=== PATIENT | male | born 1935 | race Caucasian/White ===

== ENCOUNTER 2018-06-24 14:52 | Inpatient (IN) | payer MEDICARE ==
[~2018-06-24] VITALS: Ht 172.7 cm; Wt 64.4 kg
[~2018-06-24 14:52] MED LIST: ACET325 PO; AMOX875 PO; ASPI325; ASPI325EC PO; Acidophilus La100 GM PO; Augmentin 875-1 EACH PO; Belladonna-Opi1 EACH RC; CIPR500 PO; CLIN300; CLIN300 PO; DOCU100 PO; FISH1000; FISH1000 PO; HYDACE5 PO; HYDR1TAB94 PO; IBUP400 PO; IBUP600 PO; KETO5OP BOTHEYES; METCAR750 PO; MIRT15 PO; MOXI400 PO; MULVITMIND PO; NAPR550 PO; Nasal & Sinus D30 MG PO; OMEP20ER; OMEP20ER PO; OXYB5 PO; Prilosec Otc20 MG PO; Pyridium100 MG PO; Vibramycin100 MG PO; Zylet Eye Drops5 ML BOTHEYES
[2018-06-24] MEDS ORDERED: GABA300 PO (15:05)
[2018-06-24] MEDS ORDERED: Omeprazole20 M1 PO (15:05)
[2018-06-24] MEDS ORDERED: OXYC5 PO (15:05)
[2018-06-24] MEDS ORDERED: Mupirocin22 GM (15:06)
[2018-06-24] MEDS ORDERED: METO10 (15:06)
[2018-06-24] MEDS ORDERED: ONDA4 PO (15:06)
[2018-06-24] MEDS ORDERED: K-TAB ER20 MEQ PO (15:06)
[2018-06-24] MEDS ORDERED: AZIT500 (15:06)
[2018-06-24] MEDS ORDERED: SUCR1 (15:06)
[2018-06-24] MEDS ORDERED: Lactulose10 GM/151 (15:06)
[2018-06-24 15:25] LABS: Calcium, Ionized (POC) 1.14 mmol/L (1.10-1.46); Chloride (POC) 99 mmol/L (98-108); Creatinine (POC) 0.7 mg/dL (0.8-1.3); Glucose (ISTAT POC) 114 mg/dL (70-99); Hemoglobin (POC) 9.9 g/dL (13.5-17.5); Potassium (POC) 3.7 mmol/L (3.5-5.5); Sodium (POC) 138 mmol/L (135-148); Total CO2 (POC) 27 mmol/L (21-32)
[2018-06-24 15:50] LABS: Hematocrit 30.3 % (37.0-53.0); Hemoglobin 8.9 g/dL (13.5-17.5); Mean Corpuscular HGB 21.9 pg (26.0-34.0); Mean Corpuscular HGB Conc 29.4 g/dL (31.5-36.5); Mean Corpuscular Volume 75 fL (80-100); Platelet Count 172 K/mm3 (150-400); RDW Standard Deviation 48.6 fL (35.1-46.3); Red Blood Cell Count 4.06 M/mm3 (4.30-5.90); White Blood Cell Count 2.21 K/mm3 (4.00-11.30)
[2018-06-24 16:42] LABS: BASOPHILS ABSOLUTE MAN 0.08 K/mm3 (0.00-0.23); BASOPHILS PERCENT MAN 4 % (0-2); EOSINOPHILS PERCENT MAN 0 % (0-6); LYMPHOCYTES PERCENT MAN 50 % (21-46); MONOCYTES PERCENT MAN 14 % (4-13); SEG NEUTROPHILS PERCENT MAN 32 % (41-73); TOTAL CELLS COUNTED 50
[2018-06-25 04:53] LABS: BASOPHILS ABSOLUTE AUTO 0.06 K/mm3 (0.00-0.23); BASOPHILS PERCENT AUTO 3 % (0-2); EOSINOPHILS ABSOLUTE AUTO 0.05 K/mm3 (0.00-0.68); EOSINOPHILS PERCENT AUTO 2 % (0-6); Hematocrit 25.9 % (37.0-53.0); Hemoglobin 7.7 g/dL (13.5-17.5); IMMATURE GRAN ABSOLUTE AUTO 0.01 K/mm3 (0.00-0.10); IMMATURE GRAN PERCENT AUTO 0 % (0-1); LYMPHOCYTES ABSOLUTE AUTO 1.06 K/mm3 (0.84-5.20); LYMPHOCYTES PERCENT AUTO 47 % (21-46); MONOCYTES ABSOLUTE AUTO 0.76 K/mm3 (0.16-1.47); MONOCYTES PERCENT AUTO 34 % (4-13); Mean Corpuscular HGB 21.9 pg (26.0-34.0); Mean Corpuscular HGB Conc 29.7 g/dL (31.5-36.5); Mean Corpuscular Volume 74 fL (80-100); NEUTROPHILS PERCENT AUTO 14 % (41-73); Platelet Count 143 K/mm3 (150-400); RDW Coefficient Variation 18.1 % (11.7-14.2); Red Blood Cell Count 3.51 M/mm3 (4.30-5.90); White Blood Cell Count 2.24 K/mm3 (4.00-11.30)
[2018-06-25 05:05] LABS: Anion Gap 6 mmol/L (6-16); Blood Urea Nitrogen 8 mg/dL (8-24); Bun/Creatinine Ratio 11.1 (12.0-20.0); CO2, Blood 28 mmol/L (21-32); Calcium, Blood 8.4 mg/dL (8.5-10.1); Chloride, Blood 104 mmol/L (98-108); Creatinine, Blood 0.72 mg/dL (0.60-1.20); Glomerular Filtration Rate >60 (60-); Glucose, Blood 85 mg/dL (70-99); Potassium, Blood 3.7 mmol/L (3.5-5.5); Sodium, Blood 138 mmol/L (136-145)
[2018-06-26 04:33] LABS: BASOPHILS ABSOLUTE AUTO 0.07 K/mm3 (0.00-0.23); BASOPHILS PERCENT AUTO 3 % (0-2); EOSINOPHILS ABSOLUTE AUTO 0.07 K/mm3 (0.00-0.68); EOSINOPHILS PERCENT AUTO 3 % (0-6); Hematocrit 31.7 % (37.0-53.0); Hemoglobin 9.5 g/dL (13.5-17.5); IMMATURE GRAN ABSOLUTE AUTO 0.02 K/mm3 (0.00-0.10); IMMATURE GRAN PERCENT AUTO 1 % (0-1); LYMPHOCYTES ABSOLUTE AUTO 1.36 K/mm3 (0.84-5.20); LYMPHOCYTES PERCENT AUTO 56 % (21-46); MONOCYTES ABSOLUTE AUTO 0.66 K/mm3 (0.16-1.47); MONOCYTES PERCENT AUTO 27 % (4-13); Mean Corpuscular HGB 22.7 pg (26.0-34.0); Mean Corpuscular Volume 76 fL (80-100); NEUTROPHILS ABSOLUTE AUTO 0.27 K/mm3 (1.96-9.15); NEUTROPHILS PERCENT AUTO 11 % (41-73); Platelet Count 162 K/mm3 (150-400); RDW Coefficient Variation 18.6 % (11.7-14.2); RDW Standard Deviation 50.4 fL (35.1-46.3); Red Blood Cell Count 4.19 M/mm3 (4.30-5.90); White Blood Cell Count 2.45 K/mm3 (4.00-11.30)
[2018-06-26 04:46] LABS: Anion Gap 5 mmol/L (6-16); Blood Urea Nitrogen 7 mg/dL (8-24); Bun/Creatinine Ratio 9.7 (12.0-20.0); CO2, Blood 30 mmol/L (21-32); Calcium, Blood 8.8 mg/dL (8.5-10.1); Chloride, Blood 105 mmol/L (98-108); Creatinine, Blood 0.73 mg/dL (0.60-1.20); Glomerular Filtration Rate >60 (60-); Glucose, Blood 90 mg/dL (70-99); Potassium, Blood 3.9 mmol/L (3.5-5.5); Sodium, Blood 140 mmol/L (136-145)
[2018-06-27 05:13] LABS: Bilirubin, Urine Neg (Neg); Blood, Urine Neg (Neg); Glucose Qualitative, Urine Neg (Neg); Ketones, Urine Neg (Neg); Leukocyte Esterase, Urine Neg (Neg); Nitrite, Urine Neg (Neg); Protein, Urine Neg (Neg); Urobilinogen, Urine NORM (Normal)
[2018-06-27 05:18] LABS: Appearance, Urine Clear (Clear); Color, Urine Pale Yellow (P-Yellow)
[2018-06-27 06:29] LABS: BASOPHILS ABSOLUTE AUTO 0.04 K/mm3 (0.00-0.23); BASOPHILS PERCENT AUTO 2 % (0-2); EOSINOPHILS ABSOLUTE AUTO 0.08 K/mm3 (0.00-0.68); EOSINOPHILS PERCENT AUTO 4 % (0-6); Hematocrit 31.6 % (37.0-53.0); Hemoglobin 9.5 g/dL (13.5-17.5); IMMATURE GRAN PERCENT AUTO 0 % (0-1); LYMPHOCYTES ABSOLUTE AUTO 1.15 K/mm3 (0.84-5.20); LYMPHOCYTES PERCENT AUTO 56 % (21-46); MONOCYTES ABSOLUTE AUTO 0.47 K/mm3 (0.16-1.47); MONOCYTES PERCENT AUTO 23 % (4-13); Mean Corpuscular HGB 22.5 pg (26.0-34.0); Mean Corpuscular HGB Conc 30.1 g/dL (31.5-36.5); Mean Corpuscular Volume 75 fL (80-100); NEUTROPHILS ABSOLUTE AUTO 0.31 K/mm3 (1.96-9.15); NEUTROPHILS PERCENT AUTO 15 % (41-73); Platelet Count 180 K/mm3 (150-400); RDW Coefficient Variation 18.5 % (11.7-14.2); Red Blood Cell Count 4.23 M/mm3 (4.30-5.90); White Blood Cell Count 2.05 K/mm3 (4.00-11.30)
[2018-06-27 06:30] LABS: Mean Platelet Volume 12.3 fL (9.1-12.4)
[2018-06-27 06:39] LABS: Anion Gap 7 mmol/L (6-16); Blood Urea Nitrogen 5 mg/dL (8-24); Bun/Creatinine Ratio 7.6 (12.0-20.0); CO2, Blood 27 mmol/L (21-32); Calcium, Blood 8.7 mg/dL (8.5-10.1); Chloride, Blood 107 mmol/L (98-108); Creatinine, Blood 0.66 mg/dL (0.60-1.20); Glomerular Filtration Rate >60 (60-); Glucose, Blood 103 mg/dL (70-99); Potassium, Blood 3.4 mmol/L (3.5-5.5); Sodium, Blood 141 mmol/L (136-145)
[2018-06-28 06:09] LABS: BASOPHILS ABSOLUTE AUTO 0.07 K/mm3 (0.00-0.23); BASOPHILS PERCENT AUTO 3 % (0-2); EOSINOPHILS ABSOLUTE AUTO 0.11 K/mm3 (0.00-0.68); EOSINOPHILS PERCENT AUTO 4 % (0-6); Hemoglobin 9.4 g/dL (13.5-17.5); IMMATURE GRAN ABSOLUTE AUTO 0.01 K/mm3 (0.00-0.10); IMMATURE GRAN PERCENT AUTO 0 % (0-1); LYMPHOCYTES ABSOLUTE AUTO 1.54 K/mm3 (0.84-5.20); LYMPHOCYTES PERCENT AUTO 60 % (21-46); MONOCYTES ABSOLUTE AUTO 0.59 K/mm3 (0.16-1.47); MONOCYTES PERCENT AUTO 23 % (4-13); Mean Corpuscular HGB 22.8 pg (26.0-34.0); Mean Corpuscular HGB Conc 30.3 g/dL (31.5-36.5); Mean Corpuscular Volume 75 fL (80-100); NEUTROPHILS ABSOLUTE AUTO 0.23 K/mm3 (1.96-9.15); NEUTROPHILS PERCENT AUTO 9 % (41-73); Platelet Count 183 K/mm3 (150-400); RDW Coefficient Variation 18.6 % (11.7-14.2); RDW Standard Deviation 50.4 fL (35.1-46.3); Red Blood Cell Count 4.13 M/mm3 (4.30-5.90); White Blood Cell Count 2.55 K/mm3 (4.00-11.30)
[2018-06-28 06:18] LABS: Mean Platelet Volume 11.7 fL (9.1-12.4)
[2018-06-28 06:28] LABS: Albumin, Blood 2.3 g/dL (3.4-5.0); Anion Gap 8 mmol/L (6-16); Blood Urea Nitrogen 6 mg/dL (8-24); Bun/Creatinine Ratio 8.5 (12.0-20.0); CO2, Blood 26 mmol/L (21-32); Calcium, Blood 8.8 mg/dL (8.5-10.1); Chloride, Blood 105 mmol/L (98-108); Creatinine, Blood 0.71 mg/dL (0.60-1.20); Glomerular Filtration Rate >60 (60-); Glucose, Blood 85 mg/dL (70-99); Phosphorus, Blood 3.1 mg/dL (2.5-4.9); Potassium, Blood 3.8 mmol/L (3.5-5.5); Sodium, Blood 139 mmol/L (136-145)
[2018-06-28] MEDS ORDERED: CIPR500 PO (11:51)
[2018-06-28] MEDS ORDERED: METR500 PO (11:51)
[2018-06-28] MEDS ORDERED: SACC250C PO (11:51)
== END 2018-06-28 13:13 | disposition home or self-care (01) | DRG 391 ==
LOC: ER 14:52 → MEDS 14:53 → ENPENDDIS 06-28 10:56 → MEDS 06-28 13:13
PROVIDERS: Emergency Medicine; Family Medicine; Internal Medicine
PROC: 30233N1 Transfusion of Nonautologous Red Blood Cells into Peripheral Vein, Percutaneous Approach (ICD-10-PCS; principal; 2018-06-25)
DX: A09 Infectious gastroenteritis and colitis, unspecified (principal); D61.810 Antineoplastic chemotherapy induced pancytopenia; C93.10 Chronic myelomonocytic leukemia not having achieved remission; Z87.891 Personal history of nicotine dependence; I77.6 Arteritis, unspecified; Z92.21 Personal history of antineoplastic chemotherapy; G62.0 Drug-induced polyneuropathy; Z66 Do not resuscitate; R16.1 Splenomegaly, not elsewhere classified; D64.81 Anemia due to antineoplastic chemotherapy; R63.4 Abnormal weight loss; R04.0 Epistaxis; T45.1X5A Adverse effect of antineoplastic and immunosuppressive drugs, initial encounter; Y92.9 Unspecified place or not applicable; K21.9 Gastro-esophageal reflux disease without esophagitis; R53.1 Weakness; E87.6 Hypokalemia
CPT/HCPCS: 36415; 74177; 80047; 80048; 80069; 81000; 81003; 85014; 85025; 86850; 86900; 86901; 86923; 87040; 96361; 96374; 96375; 96376; 97116; 97161; 99285-25; C9113; G8978; G8979; G8980; J0295; J2405; J3010; J7030; J7120; P9016; Q9967

== ENCOUNTER 2018-07-13 08:48 | Day surgery (SDC) | payer MEDICARE ==
[~2018-07-13] VITALS: Ht 167.6 cm; Wt 59.4 kg
[~2018-07-13 08:48] MED LIST changes: +AZIT500; +Belladonna-Opi1 EACH PR; +DIAZ5 PO; +GABA300 PO; +HYDPAM50 PO; +K-TAB ER20 MEQ PO; +Lactulose10 GM/151; +METO10; +METO10 PO; +METR500 PO; +MIRT30 PO; +Mupirocin22 GM; +OMEPRAZOLE MAGN20 MG PO; +ONDA4 PO; +OXYC5 PO; +Omeprazole20 M1 PO; +PSEU120ER PO; +Robaxin750 MG PO; +SACC250C PO; +SUCR1; +ZADITOR5 ML; +Zofran8 MG PO
[2018-07-13] MEDS ORDERED: POTA8 (09:26)
[2018-07-13] MEDS ORDERED: OXYC1TAB11 (09:26)
== END 2018-07-13 10:28 | disposition home or self-care (01) ==
LOC: ORSCSDS 08:48
PROVIDERS: Internal Medicine Gastroenterology
PROC: 0DB68ZX Excision of Stomach, Via Natural or Artificial Opening Endoscopic, Diagnostic (ICD-10-PCS; principal; 2018-07-13 10:00)
PROC: 0D758ZZ Dilation of Esophagus, Via Natural or Artificial Opening Endoscopic (ICD-10-PCS; principal; 2018-07-13 10:00)
DX: K22.70 Barrett's esophagus without dysplasia (principal); K29.70 Gastritis, unspecified, without bleeding; K29.80 Duodenitis without bleeding; R13.11 Dysphagia, oral phase; K21.9 Gastro-esophageal reflux disease without esophagitis; D46.9 Myelodysplastic syndrome, unspecified; Z87.891 Personal history of nicotine dependence; Z79.899 Other long term (current) drug therapy
CPT/HCPCS: 88305; 88342; J7120

== ENCOUNTER 2018-11-11 15:55 | Emergency (ER) | payer MEDICARE ==
[~2018-11-11] VITALS: Ht 167.6 cm; Wt 61.2 kg
[~2018-11-11 15:55] MED LIST changes: +OXYC1TAB11; +POTA8
[2018-11-11 16:54] LABS: BASOPHILS ABSOLUTE AUTO 0.01 K/mm3 (0.00-0.23); BASOPHILS PERCENT AUTO 0 % (0-2); EOSINOPHILS ABSOLUTE AUTO 0.04 K/mm3 (0.00-0.68); EOSINOPHILS PERCENT AUTO 1 % (0-6); Hemoglobin 8.5 g/dL (13.5-17.5); IMMATURE GRAN ABSOLUTE AUTO 0.02 K/mm3 (0.00-0.10); IMMATURE GRAN PERCENT AUTO 1 % (0-1); LYMPHOCYTES ABSOLUTE AUTO 1.85 K/mm3 (0.84-5.20); LYMPHOCYTES PERCENT AUTO 55 % (21-46); MONOCYTES ABSOLUTE AUTO 1.25 K/mm3 (0.16-1.47); MONOCYTES PERCENT AUTO 37 % (4-13); Mean Corpuscular HGB 22.1 pg (26.0-34.0); Mean Corpuscular HGB Conc 28.3 g/dL (31.5-36.5); Mean Corpuscular Volume 78 fL (80-100); NEUTROPHILS PERCENT AUTO 6 % (41-73); Platelet Count 142 K/mm3 (150-400); RDW Coefficient Variation 17.8 % (11.7-14.2); RDW Standard Deviation 50.6 fL (35.1-46.3); Red Blood Cell Count 3.85 M/mm3 (4.30-5.90); White Blood Cell Count 3.37 K/mm3 (4.00-11.30)
[2018-11-11 16:56] LABS: Mean Platelet Volume 12.1 fL (9.1-12.4)
[2018-11-11 17:10] LABS: Alanine Aminotransfer (ALT/SGP 13 U/L (12-78); Albumin, Blood 2.7 g/dL (3.4-5.0); Albumin/Globulin Ratio 0.5 (0.8-1.8); Alk Phos 195 U/L (50-136); Anion Gap 8 mmol/L (6-16); Aspartate Aminotrans (AST/SGOT 13 U/L (12-37); Bilirubin, Total 0.4 mg/dL (0.1-1.0); Blood Urea Nitrogen 13 mg/dL (8-24); Bun/Creatinine Ratio 15.3 (12.0-20.0); CO2, Blood 25 mmol/L (21-32); Calcium, Blood 8.3 mg/dL (8.5-10.1); Chloride, Blood 104 mmol/L (98-108); Creatinine, Blood 0.85 mg/dL (0.60-1.20); Globulin, Blood 5.5 g/dL (2.2-4.0); Glomerular Filtration Rate >60 (60-); Glucose, Blood 126 mg/dL (70-99); Potassium, Blood 3.5 mmol/L (3.5-5.5); Sodium, Blood 137 mmol/L (136-145); Total Protein, Blood 8.2 g/dL (6.4-8.2); Troponin I <0.015 ng/mL (0.000-0.040)
== END 2018-11-11 20:05 | disposition home or self-care (01) ==
LOC: ER 15:55
PROVIDERS: Physician Assistant
DX: R07.81 Pleurodynia (principal); C92.10 Chronic myeloid leukemia, BCR/ABL-positive, not having achieved remission; K21.9 Gastro-esophageal reflux disease without esophagitis; Z87.891 Personal history of nicotine dependence; Z85.51 Personal history of malignant neoplasm of bladder; Z79.899 Other long term (current) drug therapy; Z79.891 Long term (current) use of opiate analgesic
CPT/HCPCS: 36415; 71260; 80053; 84484; 85025; 93005; 93010; 99284-25; Q9967

== ENCOUNTER 2020-01-25 10:23 | Inpatient (IN) | payer OTHER, MEDICARE ==
[~2020-01-25] VITALS: Ht 170.2 cm; Wt 76.0 kg
[2020-01-25 10:47] LABS: BASOPHILS ABSOLUTE AUTO 0.02 K/mm3 (0.00-0.23); BASOPHILS PERCENT AUTO 0 % (0-2); EOSINOPHILS ABSOLUTE AUTO 0.02 K/mm3 (0.00-0.68); EOSINOPHILS PERCENT AUTO 0 % (0-6); Hematocrit 44.9 % (37.0-53.0); IMMATURE GRAN ABSOLUTE AUTO 0.05 K/mm3 (0.00-0.10); IMMATURE GRAN PERCENT AUTO 0 % (0-1); LYMPHOCYTES PERCENT AUTO 31 % (21-46); MONOCYTES ABSOLUTE AUTO 2.07 K/mm3 (0.16-1.47); MONOCYTES PERCENT AUTO 15 % (4-13); Mean Corpuscular HGB 27.5 pg (26.0-34.0); Mean Corpuscular HGB Conc 31.2 g/dL (31.5-36.5); Mean Corpuscular Volume 88 fL (80-100); NEUTROPHILS ABSOLUTE AUTO 7.58 K/mm3 (1.96-9.15); NEUTROPHILS PERCENT AUTO 54 % (41-73); RDW Coefficient Variation 15.3 % (11.7-14.2); RDW Standard Deviation 49.7 fL (35.1-46.3); White Blood Cell Count 14.04 K/mm3 (4.00-11.30)
[2020-01-25] MEDS ORDERED: OXYC10TA19 PO (10:55)
[2020-01-25] MEDS ORDERED: Hydroxychloroq200 MG PO (10:58)
[2020-01-25 10:59] LABS: Troponin I <0.015 ng/mL (0.000-0.040)
[2020-01-25 11:00] LABS: Alanine Aminotransfer (ALT/SGP 38 U/L (12-78); Albumin, Blood 3.7 g/dL (3.4-5.0); Alk Phos 79 U/L (50-136); Anion Gap 6 mmol/L (6-16); Aspartate Aminotrans (AST/SGOT 25 U/L (12-37); Bilirubin, Total 0.4 mg/dL (0.1-1.0); Blood Urea Nitrogen 13 mg/dL (8-24); Bun/Creatinine Ratio 20.1 (12.0-20.0); CO2, Blood 27 mmol/L (21-32); Calcium, Blood 8.8 mg/dL (8.5-10.1); Chloride, Blood 108 mmol/L (98-108); Creatinine, Blood 0.65 mg/dL (0.60-1.20); Globulin, Blood 3.7 g/dL (2.2-4.0); Glomerular Filtration Rate >60 (60-); Glucose, Blood 100 mg/dL (70-99); Potassium, Blood 3.2 mmol/L (3.5-5.5); Sodium, Blood 141 mmol/L (136-145); Total Protein, Blood 7.4 g/dL (6.4-8.2)
[2020-01-25 11:02] LABS: Platelet Count 38 K/mm3 (150-400)
[2020-01-25] MEDS ORDERED: Dexamethasone4 MG PO (12:44)
[2020-01-25] MEDS ORDERED: Prilosec Otc20 MG PO (12:45)
[2020-01-25 13:21] LABS: PCO2 Arterial 33.7 mmHg (35-45); PO2 Arterial 80.8 mmHg (80-100); pH Blood Arterial 7.44 (7.35-7.45)
[2020-01-25 14:05] LABS: Source, Urine Voided
[2020-01-25 14:15] LABS: Bilirubin, Urine Neg (Neg); Blood, Urine Neg (Neg); Glucose Qualitative, Urine Neg (Neg); Ketones, Urine Neg (Neg); Leukocyte Esterase, Urine Neg (Neg); Nitrite, Urine Neg (Neg); Protein, Urine 1+ (Neg); Urobilinogen, Urine NORM (Normal)
[2020-01-25 14:22] LABS: Appearance, Urine Clear (Clear); Color, Urine Yellow (P-Yellow)
[2020-01-25 15:35] LABS: Adenovirus Not Detected (NOT DETECT); Coronavirus 229E Not Detected (NOT DETECT); Coronavirus HKU1 Not Detected (NOT DETECT)
[2020-01-25 15:36] LABS: Bordetella pertussis Not Detected (NOT DETECT); Chlamydophila pneumoniae Not Detected (NOT DETECT); Coronavirus NL63 Not Detected (NOT DETECT); Coronavirus OC43 Not Detected (NOT DETECT); Human Metapneumovirus Detected (NOT DETECT); Human Rhinovirus/Enterovirus Not Detected (NOT DETECT); Influenza A/2009-H1 Not Detected (NOT DETECT); Influenza A/H1 Not Detected (NOT DETECT); Influenza A/H3 Not Detected (NOT DETECT); Influenza B Not Detected (NOT DETECT); Mycoplasma pneumoniae Not Detected (NOT DETECT); Parainfluenza Virus 1 Not Detected (NOT DETECT); Parainfluenza Virus 2 Not Detected (NOT DETECT); Parainfluenza Virus 3 Not Detected (NOT DETECT); Parainfluenza Virus 4 Not Detected (NOT DETECT); Respiratory Syncytial Virus Not Detected (NOT DETECT)
[2020-01-25] MEDS ORDERED: HYDSUL200 PO (16:29)
[2020-01-26 04:30] LABS: BASOPHILS PERCENT AUTO 0 % (0-2); EOSINOPHILS PERCENT AUTO 0 % (0-6); Hematocrit 37.8 % (37.0-53.0); Hemoglobin 11.8 g/dL (13.5-17.5); IMMATURE GRAN ABSOLUTE AUTO 0.02 K/mm3 (0.00-0.10); IMMATURE GRAN PERCENT AUTO 0 % (0-1); LYMPHOCYTES ABSOLUTE AUTO 1.67 K/mm3 (0.84-5.20); LYMPHOCYTES PERCENT AUTO 25 % (21-46); MONOCYTES ABSOLUTE AUTO 0.95 K/mm3 (0.16-1.47); MONOCYTES PERCENT AUTO 14 % (4-13); Mean Corpuscular HGB 27.8 pg (26.0-34.0); Mean Corpuscular HGB Conc 31.2 g/dL (31.5-36.5); Mean Corpuscular Volume 89 fL (80-100); NEUTROPHILS ABSOLUTE AUTO 4.05 K/mm3 (1.96-9.15); NEUTROPHILS PERCENT AUTO 61 % (41-73); RDW Coefficient Variation 15.4 % (11.7-14.2); RDW Standard Deviation 50.4 fL (35.1-46.3); Red Blood Cell Count 4.24 M/mm3 (4.30-5.90); White Blood Cell Count 6.69 K/mm3 (4.00-11.30)
[2020-01-26 04:35] LABS: Platelet Count 34 K/mm3 (150-400)
[2020-01-26 04:45] LABS: Alanine Aminotransfer (ALT/SGP 28 U/L (12-78); Albumin, Blood 2.9 g/dL (3.4-5.0); Albumin/Globulin Ratio 0.9 (0.8-1.8); Alk Phos 61 U/L (50-136); Anion Gap 5 mmol/L (6-16); Aspartate Aminotrans (AST/SGOT 12 U/L (12-37); Bilirubin, Total 0.3 mg/dL (0.1-1.0); Blood Urea Nitrogen 14 mg/dL (8-24); Bun/Creatinine Ratio 19.1 (12.0-20.0); CO2, Blood 26 mmol/L (21-32); Calcium, Blood 8.1 mg/dL (8.5-10.1); Chloride, Blood 112 mmol/L (98-108); Creatinine, Blood 0.73 mg/dL (0.60-1.20); Globulin, Blood 3.1 g/dL (2.2-4.0); Glomerular Filtration Rate >60 (60-); Glucose, Blood 102 mg/dL (70-99); Potassium, Blood 4.3 mmol/L (3.5-5.5); Sodium, Blood 143 mmol/L (136-145)
[2020-01-29 04:40] LABS: BASOPHILS ABSOLUTE AUTO 0.01 K/mm3 (0.00-0.23); BASOPHILS PERCENT AUTO 0 % (0-2); EOSINOPHILS ABSOLUTE AUTO 0.01 K/mm3 (0.00-0.68); EOSINOPHILS PERCENT AUTO 0 % (0-6); Hematocrit 36.7 % (37.0-53.0); Hemoglobin 11.3 g/dL (13.5-17.5); IMMATURE GRAN ABSOLUTE AUTO 0.04 K/mm3 (0.00-0.10); IMMATURE GRAN PERCENT AUTO 1 % (0-1); LYMPHOCYTES ABSOLUTE AUTO 1.33 K/mm3 (0.84-5.20); LYMPHOCYTES PERCENT AUTO 23 % (21-46); MONOCYTES ABSOLUTE AUTO 0.75 K/mm3 (0.16-1.47); MONOCYTES PERCENT AUTO 13 % (4-13); Mean Corpuscular HGB 27.3 pg (26.0-34.0); Mean Corpuscular HGB Conc 30.8 g/dL (31.5-36.5); Mean Corpuscular Volume 89 fL (80-100); NEUTROPHILS ABSOLUTE AUTO 3.73 K/mm3 (1.96-9.15); NEUTROPHILS PERCENT AUTO 63 % (41-73); Platelet Count 55 K/mm3 (150-400); RDW Coefficient Variation 15.2 % (11.7-14.2); RDW Standard Deviation 49.7 fL (35.1-46.3); Red Blood Cell Count 4.14 M/mm3 (4.30-5.90); White Blood Cell Count 5.87 K/mm3 (4.00-11.30)
[2020-01-29 04:41] LABS: Mean Platelet Volume 13.4 fL (9.1-12.4)
[2020-01-30 05:24] LABS: BASOPHILS ABSOLUTE AUTO 0.01 K/mm3 (0.00-0.23); BASOPHILS PERCENT AUTO 0 % (0-2); EOSINOPHILS ABSOLUTE AUTO 0.01 K/mm3 (0.00-0.68); EOSINOPHILS PERCENT AUTO 0 % (0-6); Hematocrit 37.8 % (37.0-53.0); Hemoglobin 11.7 g/dL (13.5-17.5); IMMATURE GRAN ABSOLUTE AUTO 0.04 K/mm3 (0.00-0.10); IMMATURE GRAN PERCENT AUTO 1 % (0-1); LYMPHOCYTES ABSOLUTE AUTO 1.25 K/mm3 (0.84-5.20); LYMPHOCYTES PERCENT AUTO 21 % (21-46); MONOCYTES ABSOLUTE AUTO 0.77 K/mm3 (0.16-1.47); MONOCYTES PERCENT AUTO 13 % (4-13); Mean Corpuscular HGB 27.1 pg (26.0-34.0); Mean Corpuscular Volume 88 fL (80-100); Mean Platelet Volume 12.8 fL (9.1-12.4); NEUTROPHILS ABSOLUTE AUTO 3.97 K/mm3 (1.96-9.15); NEUTROPHILS PERCENT AUTO 66 % (41-73); Platelet Count 65 K/mm3 (150-400); RDW Coefficient Variation 15.1 % (11.7-14.2); RDW Standard Deviation 48.8 fL (35.1-46.3); Red Blood Cell Count 4.32 M/mm3 (4.30-5.90); White Blood Cell Count 6.05 K/mm3 (4.00-11.30)
[2020-01-30] MEDS ORDERED: ACET325 PO (13:02)
[2020-01-30] MEDS ORDERED: ALBU90OI INH (13:04)
[2020-01-30] MEDS ORDERED: BENZ100A PO (13:05)
[2020-01-30] MEDS ORDERED: CODEINE-GUAIFE120 ML PO (13:05)
[2020-01-30] MEDS ORDERED: DOCUSATE SODIU1 EACH PO (13:06)
[2020-01-30] MEDS ORDERED: PRED20 (13:07)
== END 2020-01-30 14:15 | disposition home or self-care (01) | DRG 871 ==
LOC: ER 10:23 → PCU 14:19 → MEDS 01-26 16:40
PROVIDERS: Emergency Medicine; Internal Medicine; Nurse Practitioner Acute Care; ADMIT Internal Medicine
DX: A41.9 Sepsis, unspecified organism (principal); J96.01 Acute respiratory failure with hypoxia; J12.3 Human metapneumovirus pneumonia; C93.10 Chronic myelomonocytic leukemia not having achieved remission; R65.20 Severe sepsis without septic shock; D69.6 Thrombocytopenia, unspecified; E87.6 Hypokalemia; K21.9 Gastro-esophageal reflux disease without esophagitis; Z85.51 Personal history of malignant neoplasm of bladder; Z87.891 Personal history of nicotine dependence; E78.5 Hyperlipidemia, unspecified; Z66 Do not resuscitate
CPT/HCPCS: 0099U; 36415; 36600; 71045; 71260; 76705; 80053; 82803; 83605; 83735; 83880; 84145; 84484; 85025; 87040; 87070; 87205; 87449; 93005; 93010; 94640; 94760; 96365; 96366; 96367; 99285-25; J0456; J0696; J1956; J7030; J7050; J7512; Q9967; U0002

== ENCOUNTER 2020-10-09 10:07 | Emergency (ER) | payer MEDICARE ==
[~2020-10-09] VITALS: Ht 172.7 cm; Wt 74.8 kg
[~2020-10-09 10:07] MED LIST changes: +ALBU90OI INH; +BENZ100A PO; +CODEINE-GUAIFE120 ML PO; +DOCUSATE SODIU1 EACH PO; +Dexamethasone4 MG PO; +HYDSUL200 PO; +Hydroxychloroq200 MG PO; +OXYC10TA19 PO; +PRED20
== END 2020-10-09 11:42 | disposition home or self-care (01) ==
LOC: ER 10:07
DX: R13.10 Dysphagia, unspecified (principal); R09.89 Other specified symptoms and signs involving the circulatory and respiratory systems; K21.9 Gastro-esophageal reflux disease without esophagitis; Z88.8 Allergy status to other drugs, medicaments and biological substances; Z79.899 Other long term (current) drug therapy; Z87.891 Personal history of nicotine dependence
CPT/HCPCS: 36415; 96374; 99284-25; J1610

== ENCOUNTER 2020-12-10 10:06 | Day surgery (SDC) | payer OTHER ==
[~2020-12-10] VITALS: Ht 170.2 cm; Wt 81.3 kg
--- NOTE | 2020-12-10 11:51 | NUR ---
12/10/20 1151 Elba Staples PT. DENIES ANY PAIN DIFFERENT FROM PREOP. PT. HAS CHRONIC BACK PAIN.
== END 2020-12-10 11:20 | disposition home or self-care (01) ==
LOC: ORSCSDS 10:06
PROVIDERS: Internal Medicine Gastroenterology
PROC: 0DB68ZX Excision of Stomach, Via Natural or Artificial Opening Endoscopic, Diagnostic (ICD-10-PCS; principal; 2020-12-10 11:15)
PROC: 0D758ZZ Dilation of Esophagus, Via Natural or Artificial Opening Endoscopic (ICD-10-PCS; principal; 2020-12-10 11:15)
DX: R13.10 Dysphagia, unspecified (principal); R93.3 Abnormal findings on diagnostic imaging of other parts of digestive tract; I85.00 Esophageal varices without bleeding; K76.6 Portal hypertension; K22.8 Other specified diseases of esophagus; K31.89 Other diseases of stomach and duodenum; Z79.899 Other long term (current) drug therapy
CPT/HCPCS: 88305; 88342; J0461; J2704; J7120

== ENCOUNTER 2021-01-29 12:17 | Inpatient (IN) | payer OTHER, MEDICARE ==
[~2021-01-29] VITALS: Ht 167.6 cm; Wt 77.2 kg
[2021-01-29 12:45] LABS: BASOPHILS ABSOLUTE AUTO 0.04 K/mm3 (0.00-0.23); BASOPHILS PERCENT AUTO 0 % (0-2); EOSINOPHILS ABSOLUTE AUTO 0.07 K/mm3 (0.00-0.68); EOSINOPHILS PERCENT AUTO 0 % (0-6); Hematocrit 38.9 % (37.0-53.0); Hemoglobin 11.4 g/dL (13.5-17.5); IMMATURE GRAN PERCENT AUTO 3 % (0-1); LYMPHOCYTES ABSOLUTE AUTO 1.19 K/mm3 (0.84-5.20); LYMPHOCYTES PERCENT AUTO 7 % (21-46); MONOCYTES ABSOLUTE AUTO 3.65 K/mm3 (0.16-1.47); MONOCYTES PERCENT AUTO 23 % (4-13); Mean Corpuscular HGB 24.3 pg (26.0-34.0); Mean Corpuscular HGB Conc 29.3 g/dL (31.5-36.5); Mean Corpuscular Volume 83 fL (80-100); NEUTROPHILS ABSOLUTE AUTO 10.65 K/mm3 (1.96-9.15); NEUTROPHILS PERCENT AUTO 66 % (41-73); Platelet Count 125 K/mm3 (150-400); RDW Coefficient Variation 20.3 % (11.7-14.2); Red Blood Cell Count 4.69 M/mm3 (4.30-5.90)
[2021-01-29 13:03] LABS: Alanine Aminotransfer (ALT/SGP 31 U/L (12-78); Albumin, Blood 3.1 g/dL (3.4-5.0); Albumin/Globulin Ratio 0.9 (0.8-1.8); Alk Phos 181 U/L (50-136); Anion Gap 9 mmol/L (6-16); Aspartate Aminotrans (AST/SGOT 17 U/L (12-37); Bilirubin, Total 0.6 mg/dL (0.1-1.0); Blood Urea Nitrogen 21 mg/dL (8-24); Bun/Creatinine Ratio 24.7 (12.0-20.0); CO2, Blood 23 mmol/L (21-32); Calcium, Blood 8.2 mg/dL (8.5-10.1); Chloride, Blood 105 mmol/L (98-108); Creatinine, Blood 0.85 mg/dL (0.60-1.20); Globulin, Blood 3.3 g/dL (2.2-4.0); Glomerular Filtration Rate >60 (60-); Glucose, Blood 188 mg/dL (70-99); Potassium, Blood 4.3 mmol/L (3.5-5.5); Sodium, Blood 137 mmol/L (136-145); Total Protein, Blood 6.4 g/dL (6.4-8.2); Troponin I <0.015 ng/mL (0.000-0.040)
[2021-01-29] MEDS ORDERED: CALCITONIN-SAL3.7 M5 (14:36)
[2021-01-29] MEDS ORDERED: SPIRONOLACTONE50 MG PO (14:36)
[2021-01-29] MEDS ORDERED: NEURONTIN300 MG PO (14:37)
[2021-01-29] MEDS ORDERED: OMEP20ER PO (14:37)
[2021-01-29] MEDS ORDERED: FOSAMAX70 MG PO (14:38)
[2021-01-29 17:32] LABS: Influenza A, PCR NEGATIVE (NEGATIVE); Influenza B, PCR NEGATIVE (NEGATIVE); Resp Syncytial Virus, PCR NEGATIVE (NEGATIVE); SARS-Cov-2 (COVID-19) PCR, MMC NEGATIVE (NEGATIVE)
--- NOTE | 2021-01-29 17:43 | NUR ---
PT ADMIT TO PCU 4 FROM ER VIA [facility] AT 1630. TRANSFER TO BED USING SLIDE SHEET. ALERT AND ORIENTED X4. WITH PATIENT. ON 4 L O2 SATING ABOVE 94%. TELE SHOWING SINUS RHYTHM WITH HR 80'S. DENIES PAIN AT THIS TIME. SKIN BRUISING AND SCABS THROUGHOUT. SORE PRESENT ON COCCYX, PICTURES TAKEN AND MEPILEX IN PLACE. WOUND ON THE LATERAL DORSAL SIDE OF RIGHT FOOT AND HEEL. FLUIDS INFUSING AT 75 ML/HR. IV TO RIGHT AC SALINE FLUSHED. MED REC TO BE COMPLETED WHEN IS ABLE TO BRING IN LIST OF MEDICATIONS. Q2 TURNING. VITALS SIGNS STABLE. WILL CONTINUE TO MONITOR.
--- NOTE | 2021-01-29 19:13 | NUR ---
SHIFT SUMMARY: LACTIC ACID RESULT 3.6, DR. OLMOS NOTIFIED AND NEW ORDERS PLACED. PT IN BED EATING DINNER AND WATCHING TV, DENIES ANY PAIN. NO CHANGES SINCE LAST NOTE. PT REMAINS ALERT AND ORIENTED. Q2 TURNING IN PLACE. VITAL SIGNS STABLE. SEE PREVIOUS NOTE. REPORTED OFF TO ANGELICA TAYLOR.
--- NOTE | 2021-01-30 03:25 | NUR ---
ASSUMED CARE RECEIVED REPORT FROM ANGELICA TAYLOR. PT ASLEEP, IN NO ACUTE DISTRESS. NO ACUTE NEEDS ASSESSED AT THIS TIME. CALL LIGHT, POSSESSIONS IN REACH.
--- NOTE | 2021-01-30 03:37 | NUR ---
TRANSFER OF CARE TO PERRY TRUJILLO @3881 PT AXO. IN SR. ON 4.5LNC, SPO2 >94%. R FOOT, R HEEL, AND R SACRUM WOUNDS CLEANED AND DRESSED. SEPSIS BOLUS INFUSED PER EMAR, DIFFICULT DUE TO POOR IV ACCESS. PT STATES SOB AT TIMES BUT THEN RECEDES. DENIES CP/PRESSURE. HAS BEEN COOPERATIVE WITH CARE.
[2021-01-30 04:44] LABS: BASOPHILS ABSOLUTE AUTO 0.02 K/mm3 (0.00-0.23); BASOPHILS PERCENT AUTO 0 % (0-2); EOSINOPHILS ABSOLUTE AUTO 0.03 K/mm3 (0.00-0.68); EOSINOPHILS PERCENT AUTO 0 % (0-6); Hemoglobin 8.7 g/dL (13.5-17.5); IMMATURE GRAN ABSOLUTE AUTO 0.23 K/mm3 (0.00-0.10); IMMATURE GRAN PERCENT AUTO 2 % (0-1); LYMPHOCYTES ABSOLUTE AUTO 2.13 K/mm3 (0.84-5.20); LYMPHOCYTES PERCENT AUTO 17 % (21-46); MONOCYTES ABSOLUTE AUTO 2.17 K/mm3 (0.16-1.47); MONOCYTES PERCENT AUTO 17 % (4-13); Mean Corpuscular HGB 24.4 pg (26.0-34.0); Mean Corpuscular Volume 84 fL (80-100); NEUTROPHILS ABSOLUTE AUTO 7.88 K/mm3 (1.96-9.15); NEUTROPHILS PERCENT AUTO 63 % (41-73); Platelet Count 91 K/mm3 (150-400); RDW Coefficient Variation 19.9 % (11.7-14.2); RDW Standard Deviation 60.1 fL (35.1-46.3); Red Blood Cell Count 3.56 M/mm3 (4.30-5.90); White Blood Cell Count 12.46 K/mm3 (4.00-11.30)
[2021-01-30 05:09] LABS: Anion Gap 5 mmol/L (6-16); Blood Urea Nitrogen 17 mg/dL (8-24); Bun/Creatinine Ratio 22.8 (12.0-20.0); CO2, Blood 25 mmol/L (21-32); Calcium, Blood 7.1 mg/dL (8.5-10.1); Chloride, Blood 111 mmol/L (98-108); Creatinine, Blood 0.74 mg/dL (0.60-1.20); Glomerular Filtration Rate >60 (60-); Glucose, Blood 98 mg/dL (70-99); Magnesium, Blood 1.7 mg/dL (1.6-2.4); Potassium, Blood 4.8 mmol/L (3.5-5.5); Sodium, Blood 141 mmol/L (136-145)
[2021-01-30 06:09] LABS: Adenovirus Not Detected (NOT DETECT); Bordetella pertussis Not Detected (NOT DETECT); Chlamydophila pneumoniae Not Detected (NOT DETECT); Coronavirus 229E Not Detected (NOT DETECT); Coronavirus HKU1 Not Detected (NOT DETECT); Coronavirus NL63 Not Detected (NOT DETECT); Coronavirus OC43 Not Detected (NOT DETECT); Human Metapneumovirus Not Detected (NOT DETECT); Human Rhinovirus/Enterovirus Not Detected (NOT DETECT); Influenza A/2009-H1 Not Detected (NOT DETECT); Influenza A/H1 Not Detected (NOT DETECT); Influenza A/H3 Not Detected (NOT DETECT); Influenza B Not Detected (NOT DETECT); Parainfluenza Virus 1 Not Detected (NOT DETECT); Parainfluenza Virus 2 Not Detected (NOT DETECT); Parainfluenza Virus 3 Not Detected (NOT DETECT); Parainfluenza Virus 4 Not Detected (NOT DETECT); Respiratory Syncytial Virus Not Detected (NOT DETECT); SARS-Cov-2 (COVID-19), BioFire Not Detected (NOT DETECT)
[2021-01-30 06:10] LABS: Mycoplasma pneumoniae Not Detected (NOT DETECT)
--- NOTE | 2021-01-30 07:30 | NUR ---
GAMBLING BOX PERSON SUMMARY PT SLEEPING, IN NO ACUTE DISTRESS. VS REVIEWED,WNL. NO ACUTE CHANGES IN CONDITION NOTED FROM INITIAL ASSESSMENT. O2 SATS STABLE. DENIES PAIN. CALL LIGHT, POSSESSIONS IN REACH, REPORT GIVEN TO ONCOMING RN.
--- NOTE | 2021-01-30 07:49 | NUR ---
Pt is a/o x 4 this morning and very pleasant. His respirations are shallow and he reports that is new and is related to pain when he inhales deeply. He is currently on 4 LPM via NC and his O2 Sat is 96%. He has expiratory wheezes in the upper lobes and DIM in the bases. Cap refil < 3 seconds. He has generalized edema and poor skin tugor, he reports improved fluids intake. Condom cath is in place draining clear yellow urine. He has a wound on his right foot that he reports is from edema in his foot that turned into a blister and then popped. BLE elevated on pillows. He has his call light in reach and reports knowing how to use it.
--- NOTE | 2021-01-30 12:38 | NUR ---
Dr Aguayo rounded on pt this morning and gave orders for pt to be started on Bipap due to his SOB. RT was notified and Pt was started on Bipap. He continues to SAT in the high 90's. He is sleeping now and awake to his name.
--- NOTE | 2021-01-30 15:34 | NUR ---
This nurse attempted to call in podiatry consult but it was discovered that there is no [facility] nurse liaison until february 04. Dr Aguayo was notified and gave the order to DC the consult and stated that the pt can follow up with podiatry outpatient after DC.
--- NOTE | 2021-01-30 17:01 | NUR ---
shift summary pt has been a/o x 4 today with no c/o pain. At start of shift he was on 4 LPM via NC and was SATing in the high 90's but still having labored breathing. Per Dr Aguayo he was switched over to BiPAP by RT and his brething improved. He slept most of the afternoon and woke to eat a late lunch. During his meal his O2 dropped into the high 80's and RT was made aware and he was switched back over to the BiPAP after he finished eating. He fell back asleep and is resting in bed now. He visited for an hour or two this afternoon. Condom cath is still in place per pt request and is draining clear yellow urine. Wound care was done per orders and the podiatry consult was cancelled due to no sludge filtration operator and he will folow up outpatient. Pt has his call light in reach and calls when needed.
[2021-01-31 04:05] LABS: Hematocrit 34.2 % (37.0-53.0); Mean Corpuscular HGB Conc 29.2 g/dL (31.5-36.5); Mean Corpuscular Volume 82 fL (80-100); Platelet Count 104 K/mm3 (150-400); RDW Coefficient Variation 20.5 % (11.7-14.2); RDW Standard Deviation 59.7 fL (35.1-46.3); Red Blood Cell Count 4.16 M/mm3 (4.30-5.90); White Blood Cell Count 13.81 K/mm3 (4.00-11.30)
[2021-01-31 04:28] LABS: Alanine Aminotransfer (ALT/SGP 27 U/L (12-78); Albumin, Blood 2.6 g/dL (3.4-5.0); Albumin/Globulin Ratio 0.9 (0.8-1.8); Alk Phos 134 U/L (50-136); Anion Gap 6 mmol/L (6-16); Aspartate Aminotrans (AST/SGOT 13 U/L (12-37); Bilirubin, Total 0.7 mg/dL (0.1-1.0); Blood Urea Nitrogen 17 mg/dL (8-24); CO2, Blood 25 mmol/L (21-32); Calcium, Blood 7.8 mg/dL (8.5-10.1); Chloride, Blood 108 mmol/L (98-108); Creatinine, Blood 0.77 mg/dL (0.60-1.20); Globulin, Blood 2.9 g/dL (2.2-4.0); Glomerular Filtration Rate >60 (60-); Glucose, Blood 85 mg/dL (70-99); Magnesium, Blood 1.7 mg/dL (1.6-2.4); Phosphorus, Blood 1.9 mg/dL (2.5-4.9); Potassium, Blood 4.1 mmol/L (3.5-5.5); Sodium, Blood 139 mmol/L (136-145); Total Protein, Blood 5.5 g/dL (6.4-8.2)
[2021-01-31 05:45] LABS: BASOPHILS PERCENT MAN 0 % (0-2); EOSINOPHILS ABSOLUTE MAN 0.13 K/mm3 (0.00-0.68); EOSINOPHILS PERCENT MAN 1 % (0-6); LYMPHOCYTES ABSOLUTE MAN 4.14 K/mm3 (0.84-5.20); LYMPHOCYTES PERCENT MAN 30 % (21-46); MONOCYTES ABSOLUTE MAN 2.76 K/mm3 (0.16-1.47); MONOCYTES PERCENT MAN 20 % (4-13); NEUTROPHILS ABSOLUTE MAN 6.76 K/mm3 (1.96-9.15); SEG NEUTROPHILS PERCENT MAN 49 % (41-73); TOTAL CELLS COUNTED 100
--- NOTE | 2021-01-31 07:30 | NUR ---
SHIFT SUMMARY PT WAS ON BIPAP MOST OF THE NIGHT WITH BREAKS FROM THE MASK AND ON CANNULA. BIPAP WAS 10/5 30%FIO2 WITH O2 SATS IN THE LOW 90'S. BIPAP UP TO 35%FIO2 BY AM WITH O2 SATS 90-95%. PT ON 4-5LPM NC WHEN NOT ON BIPAP WITH O2 SATS AROUND 90%. PT WOULD DESAT QUICKLY INTO THE 80'S WHEN NOT ON O2. VITALS WERE STABLE WITH BP 149-120 SYSTOLIC. HR 100'S. PT HAVING DIFFICULTY BREATHING WHEN ON NC USING ACCESSORY MUSCLES. BREATHING WORKLOAD DECREASED AND PT MORE COMFORTABLE ON BIPAP. PT HAD NO IMPROVEMENT T/O SHIFT.
--- NOTE | 2021-01-31 08:49 | NUR ---
Pt is sleeping in bed with BiPAP on at change of shift this morning and he is requesting a break from the mask. The pt was repositioned in bed to offload pressure and wound care was completed as ordered. The wound to the top of his righ foot is improved from yesterday and has more granulated tissue and less slough. Foam heel protectors were placed as the pt cannot re-position himself at this time. The BiPAP was paused for breakfast and morning and oral care was completed before he attempted to eat but he had a very poor appetite and has increased respiratory workload whle off of the BiPAP and while attempting any oral intake. When transitioning from the BiPAP to NC the pt O2 SAT drops into the low 80's. RT assessed the pt at the bedside and replaced the BiPAP after breakfast. DR Mahoney was updated on the pt status and ordered a chest xray which was just completed and started the pt on iv vanco. Pt is resting in bed now.
--- NOTE | 2021-01-31 16:26 | NUR ---
shift summary Pt has been sleeping most of the day and on BIPAP. He does arouse to his name while sleeping. With the BiPAP in place he has visible decreased workload of breathing and O2 SATS between 90-93%. Dr Mahoney started the pt on IV vanco. 2 IVS were not functioning and so the charge nurse was able to place a powerglide in his righ upper arm. and the IV ABO was able to infuse as ordered. The pt has non-pitting edema throughout his extremities and his arms and legs have been elevated on pillows. This afternoon catalina his arrived the pt began pulling at his BiPAP and saying that he wanted the mask off. RT was notified and since the Pt was refusing the BiPAP the pt was started on high flow oxygen via NC and he has been maitaining O2 SATs in the low 90's. He did complain of generalized pain and was gievn tylenol and then fell back asleep. His is at the bedside now, she has been updated with the events of the day and all her questions have been answered. The pt has his call light in reach.
[2021-02-01 04:50] LABS: Hematocrit 35.2 % (37.0-53.0); Hemoglobin 10.4 g/dL (13.5-17.5); Mean Corpuscular HGB Conc 29.5 g/dL (31.5-36.5); Mean Corpuscular Volume 81 fL (80-100); Platelet Count 82 K/mm3 (150-400); RDW Coefficient Variation 20.5 % (11.7-14.2); Red Blood Cell Count 4.34 M/mm3 (4.30-5.90); White Blood Cell Count 20.38 K/mm3 (4.00-11.30)
[2021-02-01 05:24] LABS: Anion Gap 7 mmol/L (6-16); Blood Urea Nitrogen 26 mg/dL (8-24); Bun/Creatinine Ratio 27.2 (12.0-20.0); CO2, Blood 27 mmol/L (21-32); Calcium, Blood 8.3 mg/dL (8.5-10.1); Chloride, Blood 106 mmol/L (98-108); Creatinine, Blood 0.96 mg/dL (0.60-1.20); Glomerular Filtration Rate >60 (60-); Glucose, Blood 92 mg/dL (70-99); Sodium, Blood 140 mmol/L (136-145)
--- NOTE | 2021-02-01 07:26 | NUR ---
SHIFT SUMMARY PT O2 NEEDS HAVE INCREASED SINCE LAST NOC SHIFT. PT ON BIPAP AT 10/5 50%FIO2 WITH 02 SATS ABOUT 92%. PT FREQUENTLY ASKED FOR THE MASK TO BE OFF STATING HE COULD NO LONGER HANDLE IT. PT ON HIFLOW NC AT 13LPM WHEN OFF BIPAP, O2 SATS 89-91%. PT WOULD DESAT QUICKLY INTO THE 70'S W/O O2. LUNGS WERE VERY WET AND PT AHD AUDIBLE GURGLING. LASIX GIVEN WITH SOME IMPROVEMENT. PT HAVING DIFFICULTY BREATHING WHEN ON HIFLOW NC. PT REFUSED TO PUT BIPAP BACK ON SEVERAL TIMES, EDUCATED PT AND HE WAS THEN AGREEABLE. PT WAS ALSO REFUSING REPOSITIONING, EDUCATED PT ON THE NEED TO REPOSITION AND HE WAS AGREEABLE TWO TIMES. PT OTHERWISE WAS ON HIS BACK WITH HOB ELEVATED. WOUNDS HAD NEW DRESSINGS AND DRESSING WAS CDI. PT HAD A NEW PRESSURE ULCER ON R BUTTOCKS, APROX. 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 PICTURES UPDATED IN CHART. VITALS WERE STABLE WITH BP 110-120'S SYSTOLIC. HR 100'S. PT LOOKING MORE WEAK THAN PREVIOUS NOC SHIFT.
--- NOTE | 2021-02-01 18:21 | NUR ---
SHIFT NOTE PT BEGAN REFUSING HIS BIPAP THIS AM STS "IT IS THE IRONMAIDEN", RT CALLED TO ROOM AND RT WAS ABLE TO EDUCATE PT THAT HE WILL NEED TO WEAR BIPAP. PT HAS INTERMITTENTLY WORE BIPAP, WHEN HE IS OFF OF BIPAP HE IS ON 14L HIGH FLOW O2. WHEN ON HIGH FLOW O2 IS IN PLACE PT SLOWLY DESATURATES TO MID 80s AND BIPAP IS RESUMED. PT WITH CRACKLES NOTED T/O. CONDOM CATH DRAINING BY GRAVITY TO LEG BAG. PT IS ALERT, AWAKENS EASILY TO VERBAL STIMULI, A/O X3. REFUSES ANY REPOSITIONING TODAY. RT FOOT WOUNDS ARE REDRESSED THIS AFTERNOON. COCCYX WOUND WAS NOT REDRESSED PT REFUSED TO BE REPOSITIONED.
--- NOTE | 2021-02-01 18:25 | NUR ---
Multiple visits today to assist with patients comfort. pt anxious does not like bipap. stugles with inspiration, moderate airhung would benefit from a stingy dose of morphine. Met with to review prognosis. She states he has been in great decline with the wounds. They are exhauseted and have been going to physicans office weekly. e reviewed his poor reponse to antibiotics. Advised we will continue to try to treat his infection to give him comfort and then consider hospice. pt has [facility] home [facility] scheduled for wound care. but ended up in hospital. She thinkd he is suffering more and would accept hospice. She is showing signigicant fatigue from careing for him. She feels he would be happier on hospice. She wanted end matcher to come see him Father isaac was in and anointed him and comforted his . Will update [facility]. does no want anyother company except [facility].
--- NOTE | 2021-02-02 05:54 | NUR ---
SHIFT SUMMARY PATIENT IS ALERT AND ORIENTED BUT CAN BE FORGETFULL AT TIMES. PATIENT HAS BEEN COOPERATIVE WITH CARE FOR THE MOST PART. REPOSITIONED Q2 HOURS. PATIENT WOULD PULL OFF BIPAP FOR A DRINK BUT WOULD LET US PUT BIPAP BACK ON AND WORE IT THROUGHOUT THE SHIFT. TRIED TO GIVE BREAKS ON 15L VIS HIGH FLOW NC BUT PATIENTS 02 SATS WOULD DROP TO UPPER 70s- LOWER 80s. 02 SATS >90% ON BIPAP FI02 70%. CONDOM CATHETER DRAINING. VSS, NO ACUTE CHANGES. CALL LIGHT IN REACH.
[2021-02-02 09:33] LABS: Hematocrit 36.6 % (37.0-53.0); Hemoglobin 10.9 g/dL (13.5-17.5); Mean Corpuscular HGB 24.2 pg (26.0-34.0); Mean Corpuscular HGB Conc 29.8 g/dL (31.5-36.5); Mean Corpuscular Volume 81 fL (80-100); Platelet Count 78 K/mm3 (150-400); RDW Coefficient Variation 20.3 % (11.7-14.2); RDW Standard Deviation 58.8 fL (35.1-46.3); White Blood Cell Count 31.74 K/mm3 (4.00-11.30)
[2021-02-02 09:37] LABS: Anion Gap 9 mmol/L (6-16); Blood Urea Nitrogen 40 mg/dL (8-24); Bun/Creatinine Ratio 26.7 (12.0-20.0); CO2, Blood 23 mmol/L (21-32); Calcium, Blood 7.7 mg/dL (8.5-10.1); Chloride, Blood 104 mmol/L (98-108); Glomerular Filtration Rate 47 (60-); Glucose, Blood 131 mg/dL (70-99); Potassium, Blood 4.2 mmol/L (3.5-5.5); Sodium, Blood 136 mmol/L (136-145); Vancomycin, Trough 17.7 ug/mL (5.0-10.0)
[2021-02-02 13:57] LABS: Influenza A, PCR NEGATIVE (NEGATIVE); Influenza B, PCR NEGATIVE (NEGATIVE); Resp Syncytial Virus, PCR NEGATIVE (NEGATIVE); SARS-Cov-2 (COVID-19) PCR, MMC NEGATIVE (NEGATIVE)
--- NOTE | 2021-02-02 17:03 | NUR ---
SHIFT SUMMARY NOTE PATIENT ALERT AND ORIENTED. MINIMAL VERBAL RESPONSES. HE IS USING MOSTLY GESTURES/HEAD NODDING TO COMMUNICATE. NOT TOLERATING BIPAP OFF FOR EATING AND SWALLOWING MEDICATIONS. O2 SATS DROPPED TO LOW/MID 80S WITH 15 L O2 VIA NASAL CANNULA. IMMEDIATELY PUT BIPAP BACK ON. HE IS NOT RESISTIVE TO WEARING IT TODAY. HE IS COOPERATIVE WITH MINIMAL REPOSITIONING HIP TO HIP. BANDAGES ON RIGHT FOOT AND HEEL, COCCYX AND BUTTOCKS CHANGED THIS SHIFT. CHEST X-RAY REPEATED, FOLLOWED UP BY COVID TEST. RESULTS WERE NEGATIVE. SLEPT MOST THIS SHIFT INCLUDING WHILE HIS VISITED. FOLLOWING UP WITH PALLIATIVE CARE THURSDAY.
--- NOTE | 2021-02-03 05:09 | NUR ---
SHIFT SUMMARY PATIENT IS ALERT AND ORIENTED X3, CAN BE FORGETFUL. Q2 HOUR REPOSITIONING WITH MAXIMUM ASSIST. ORAL CARE PROVIDED. PATIENT SLEPT MOST THE NIGHT. PATIENT WORE BIPAP MOST THE SHIFT 02 SATS 94% ON 70% FIO2. GAVE PATIENT BREAKS FROM BIPAP ON 15L VIA HIGH FLOW NC, PATIENT WOULD ONLY TOLERATE IT FOR A COUPLE MINUTES THEN NEED THE BIPAP AGAIN. VSS, NO ACUTE CHANGES. CALL LIGHT IN REACH.
[2021-02-03 09:27] LABS: Hematocrit 34.4 % (37.0-53.0); Hemoglobin 10.8 g/dL (13.5-17.5); Mean Corpuscular HGB 24.3 pg (26.0-34.0); Mean Corpuscular HGB Conc 31.4 g/dL (31.5-36.5); Mean Corpuscular Volume 77 fL (80-100); Platelet Count 76 K/mm3 (150-400); RDW Coefficient Variation 19.8 % (11.7-14.2); RDW Standard Deviation 55.2 fL (35.1-46.3); Red Blood Cell Count 4.45 M/mm3 (4.30-5.90); White Blood Cell Count 25.96 K/mm3 (4.00-11.30)
[2021-02-03 09:37] LABS: Anion Gap 10 mmol/L (6-16); Blood Urea Nitrogen 54 mg/dL (8-24); Bun/Creatinine Ratio 40.9 (12.0-20.0); CO2, Blood 21 mmol/L (21-32); Calcium, Blood 7.3 mg/dL (8.5-10.1); Chloride, Blood 105 mmol/L (98-108); Creatinine, Blood 1.32 mg/dL (0.60-1.20); Glomerular Filtration Rate 55 (60-); Glucose, Blood 176 mg/dL (70-99); Potassium, Blood 3.4 mmol/L (3.5-5.5); Sodium, Blood 136 mmol/L (136-145); Vancomycin, Trough 20.1 ug/mL (5.0-10.0)
--- NOTE | 2021-02-03 14:58 | NUR ---
Afew visits to pt today he was sleepy on bipap. is wanting to wait to make decision due to season of and today and their devout violetta. Will review prognosis tomorrow with physciain and review plan of care.
--- NOTE | 2021-02-03 18:19 | NUR ---
SHIFT SUMMARY PT ALERT, ORIENTEDx3; FORGETFUL. PT PLACED STRICT NPO FOR SPEECH THERAPY ASSESSMENT, CONSTANTLY ASKING FOR A DRINK, REDIRECTED EASILY. PT ON BIPAP FOR MAJORITY OF SHIFT, FIO2 TITRATED FROM 70% RO 50% T/O SHIFT, ATTEMPTED BREAKS ON 15L O2 VIA NC, DESATURATIED AFTER APPROX 1-2 MINUTES BUT RECOVERED QUICKLY. PT REFUSED ORAL CARE THIS AM, ALLOWED THIS AFTERNOON AND EVENING. PT DENIES PAIN, NAUSEA AND DIZZINESS. PT APPEARS TO BE SLEEPING FOR MAJORITY OF SHIFT. OTHER VSS. NO OTHER ACUTE CHANGES NOTED. WILL CONTINUE TO MONITOR UNITL REPORT GIVEN TO ONCOMING RN.
--- NOTE | 2021-02-04 04:13 | NUR ---
SHIFT SUMMARY PATIENT IS ALERT AND ORIENTED, CAN BE FORGETFUL. 2 PERSON MAX ASSIST WITH REPOSITIONING Q2 HOURS. GAVE PATIENT BED BATH. ORAL CARE PROVIDED THROUGHOUT THE NIGHT WELL MOUTH SWABS FOR MOISTURE. PATIENT NPO. PATIENT ON BIPAP MOST THE NIGHT 02 SATS 91-93% ON 35% FIO2. BREAKS ON AIRVO PROVIDED WHEN PATIENT STARTED PULLING OFF BIPAP. LUNGS SOUNDING SIGNIFICANTLY LESS COARSE TONIGHT THAN LAST NIGHT. CONDOM CATH DRAINING. VSS, NO ACUTE CHANGES. CALL LIGHT IN REACH.
--- NOTE | 2021-02-04 12:44 | NUR ---
Review of pt with physican nursing and speech therapy about failed barium eval. physican called and it then had theraputic converstion with her. Plan is transition to comfort. Pt very distraught wanting food and drink worked with him and very miniscule ice chip he tolerated well we did a scecond one. It was therputic, he advised his is very uncomfortable had nursing give him prn meds for airhunger and comfort. Will follow up with for support. [facility] caret[facility]. Unsure if he can tolerate transfer. Will continue to monitor for symmotom management.
--- NOTE | 2021-02-04 13:36 | NUR ---
Met pt. in bed and his nurse in the room attending to his needs. Pt. reports to be doing much better , encouraged pt and offered prayers.
--- NOTE | 2021-02-04 17:56 | NUR ---
SHIFT SUMMARY PT MORE ALERT TODAY THAN PREVIOUS DAY, ORIENTED x4; FORGETFUL AT TIMES. PT DENIES PAIN ON INITIAL ASSESSMENT, AFTER BARRIUM SWALLOW, PT REPORTS GENERALIZED PAIN 10/10; MEDICATED PER EMAR. PER TELE SIT 100'S FOR MAJORITY OF SHIFT. BARRIUM SWALLOW EVAL COMPLETED. THIS AM. PT TRANSITIONED TO COMFORT CARE DURING SHIFT, PER ORDERS. CONTINUE AIRVO/O2 THERAPY. ORAL CARE T/O SHIFT. REPOSITIONED T/O SHIFT. SPOUSE AT BEDSIDE. NO ACUTE CHANGES WILL CONTINUE TO MONITOR.
--- NOTE | 2021-02-05 05:47 | NUR ---
SHIFT SUMMARY PT COMFORT CARE STATUS. PT HAS BEEN SLEEPING THROUGHOUT SHIFT. PT OPENS HIS EYES BREIFLY TO VERBAL STIMULI. HE IS NOT VERBALIZING BEYOND "MHMM". PT DOES NOT DISPLAY SIGNS OF PAIN. PT IS USING ACCESORY MUSCLE WHEN BREATHING. RESPIRATIONS LABORED. PT PROVIDED W/ PRN SL ROXANOL X1 THIS SHIFT. SPO2 >92% AIRVO @ 50L FIO2 49%. PT Q2HR REPOSITION. NO EVENTS OVER NIGHT.
--- NOTE | 2021-02-05 05:58 | NUR ---
THIS RN AGREES W/ STUDENT RN TONE Watson NOTE & DOCUMENTATION.
--- NOTE | 2021-02-05 07:39 | NUR ---
COMFORT CARE PT APPEARS TO BE SLEEPING. OPENING EYES TO VERBAL STIMULI, VERBAL RESPONSE "MMHM". FALLS BACK TO SLEEP QUICKLY. RESP RATE 14; USE OF ACCESSORY MUSCLES NOTED, LS DIM COARSE T/O. PT CONTINUES ON AIRVO 50L AT 50% FIO2. HR REG TACHY. BS HYPOACTIVE, ABD MINIMALLY DISTENDED, NONTENDER. PT REPOSITIED, ATTENDS CHANGES. DRESSING C/D/I. WILL CONTINUE TO MONITOR.
--- NOTE | 2021-02-05 09:14 | NUR ---
COMFORT CARE PT RESPIRATIONS, LABORED AND UNEVEN; 16-18 RESP WITH QUICK DEEP BREATHES AND APPROX 5 SECOND APNIC PAUSES. MEDICATED WITH ROXANOL FOR RESTLESSNESS AND AIRHUNGER. WILL CONTINUE TO MONTIOR.
--- NOTE | 2021-02-05 14:40 | NUR ---
Met pt. lying in bed and is now in [facility], spoke to the encouraged her and we prayed for the pt.
--- NOTE | 2021-02-05 16:53 | NUR ---
COMFORT CARE PT APPEARS TO BE SLEEPING COMFORTABLY; RESPIRATIONS 20-24; SLIGHTLY LABORED. PT SPOUSE AT BEDSIDE, STATES THAT HE IS COMFORTABLE. WILL CONTINUE TO MONITOR.
--- NOTE | 2021-02-05 18:11 | NUR ---
COMFORT CARE PT RESTING, APPEARS TO BE SLEEPING COMFORTABLY; RESPIRATORY EFFORT IMPROVED WITH ATIVAN AND ROXANOL. SPOUSE AT BEDSIDE. WILL CONTINUE TO MONITOR.
--- NOTE | 2021-02-05 18:28 | NUR ---
Review of symptoms with and supportive visits.
--- NOTE | 2021-02-05 19:23 | NUR ---
RESTING QUIETLY. AIRVO IN USE. HOB AT 35 DEGREES. CALL LIGHT IN REACH
--- NOTE | 2021-02-05 21:56 | NUR ---
RESTING QUIETLY. REPOSITIONED. HOB REMAINS ELEVATED FOR COMFORT. CALL LIGHT IN REACH
--- NOTE | 2021-02-05 21:57 | NUR ---
CONDOM CATH WAS OFF. NEW ONE APPLIED. REPOSITIONED EARLIER. SOME IRREGULAR RESPS. HOB ADJUSTED, RESPS MORE EVEN AFTER. WILL CONT TO MONITOR
--- NOTE | 2021-02-05 22:57 | NUR ---
RESTING QUIETLY. REPOSITIONED. CONDOM CATH DRAINING. O2 CONTINUES PER AIRVO. HOB REMAINS ELEVATED ABOUT 40 DEGREES. CALL LIGHT IN REACH
--- NOTE | 2021-02-06 01:45 | NUR ---
REPOSITIONED OFF BUTTOCKS, ORAL CARE DONE. O2 PER AIRVO CONTINUES WITH HOB AT 45 DEGREES. CALL LIGHT IN REACH
--- NOTE | 2021-02-06 02:46 | NUR ---
REPOSITIONED. CONDOM CATH REAPPLIED. BRIEF CHANGED. CALL LIGHT IN REACH. SOME VERBAL NOISES BUT UNABLE TO UNDERSTAND THEM. O2 PER AIRVO REAPPLIED, HAD TAKEN IT OFF
--- NOTE | 2021-02-06 04:46 | NUR ---
SHIFT SUMMARY REMAINS ON COMFORT CARE. WAS AT BEDSIDE UNTIL HS AND THEN LEFT FOR HOME. PT ON AIRVO AND HOB AT 45 DEGREES FOR BREATHING COMFORT. RECEIVED ROXINOL X 1 FOR APPARENT QXYGEN HUNGER. MED EFFECTIVE NOW HE IS RESTING MORE COMFORTABLY. CALL LIGHT IN REACH. CONDOM CATH REAPPLIED, WILL CONTINUE TO PROVIDE COMFORT CARE NEEDED.
--- NOTE | 2021-02-06 08:32 | NUR ---
PT REPOSITIONED WHICH IMPROVED SOB. CONDOM CATH REPLACED, LINENS CHANGED, ATTENDS CHANGED
--- NOTE | 2021-02-06 10:45 | NUR ---
[facility] comfort care visit - Pt's and sister in law standing outside of room while staff prepare [facility] for transfer to rm [id number]. Multiple staff in room. Pt with eyes closed and not responding/interacting with staff. Time spent supporting and jabari. She states pt was in horrible pain and anxiety earlier this am and she requested medications be given. Meds given per orders and pt appears comfortable and peaceful at this time. I instructed on nonverbal indicators of pain, anxiety and distress to watch for and report. Requested fresh comfort care cart for new room, to include hot water, fresh water but no coffee per 's request. Planned wih to make visit to room 343 this afternoon.
--- NOTE | 2021-02-06 12:00 | NUR ---
PT [facility]SF[facility] PT HERE FOR SEPSIS, AND NO ON COMFORT CARE. PT AT BEDSIDE. PT HAS MENDEL POWERGLIDE. PT RECEIVING ROXYNAL AND ATIVAN. PT IS ON AIRVO CONTINUOUSLY. PT IS NPO; AND HEAD OF BED ELEVATED FOR BREATHING. PT HAS MULTIPLE WOUNDS ON HIS COCCYX, BOTH SIDES OF HIS BUTTOM, AND TOP OF HIS R FOOT- WHICH DRESSING CHANGED TODAY PER HIDE AND SKIN PROCESSING WORKER. BED IS IN THE LOWEST POSITION AND CALL LIGHT WITHIN REACH
--- NOTE | 2021-02-06 12:44 | NUR ---
PAL CARE COMFORT CARE VISIT. at Dr's appointment and WILLIAN at bedside. Pt supine with hob elevated. His has a resp rate of 36-40/min with accessory muscles of resp employed. He appears to be working very hard. Occassionally, he will lift hands off bed but not with any purposeful movement. Hagen drainage bag noted with <100 ml yellow urine. Skin warm/dry, including hands and feet. Discussed assessment wt willian and RN covering for pt's RN. VM left for pt's RN re: return visit if requested by and increased work of respiration noted. Pt appears comfortable otherwise.
--- NOTE | 2021-02-06 18:33 | NUR ---
SHIFT SUMMARY PT ON COMFORT CARE; NONVERBAL. PT WILL MOVE HIS ARMS SOMETIMES. PT MEDICATED PER EMAR PER COMFORT MEASURES. PT AT BEDSIDE VERY EMOTIONAL; PROVIDED SUPPORT. PT IS ON AIRVO. BED IS IN THE LOWEST POSITION AND CALL LIGHT WITHIN REACH
--- NOTE | 2021-02-07 03:52 | NUR ---
SHIFT SUMMARY PATIENT ON COMFORT CARE. NONVERBAL WITH EYES CLOSED T/O SHIFT. BEDREST. RT DC AIRVO AND ON 4L O2 NC. SPOUSE PRESENT AT START OF SHIFT AND REPORTED GOING HOME EARLY. NPO. ROXANOL 20 MG GIVEN PER EMAR. POWERGLIDE MENDEL INTACT. CONDOM CATH. CALL LIGHT IN REACH. BED IN LOWEST POSITION. WILL CONTINUE TO MONITOR UNTIL DAY SHIFT NURSE ASSUMES CARE.
--- NOTE | 2021-02-07 05:38 | NUR ---
PATIENT AT 05:15. CHARGE NURSE NOTIFIED. SPOUSE CALLED BUT DID NOT HORSE AND WAGON DRIVER AT THIS TIME.
--- NOTE | 2021-02-07 06:01 | NUR ---
HOSPITALIST DR ROJAS NOTIFIED OF TOD 05:15
--- NOTE | 2021-02-08 09:26 | NUR ---
called to check on er wih funneral planning and grief she has good support from her sister and javi.
== END 2021-02-07 05:15 | DRG 871 ==
LOC: ER 12:17 → PCU 14:44 → MEDS 02-06 10:45
PROVIDERS: Emergency Medicine; Internal Medicine; Nurse Practitioner Acute Care; Pharmacist; ADMIT Family Medicine
PROC: 5A09557 Assistance with Respiratory Ventilation, Greater than 96 Consecutive Hours, Continuous Positive Airway Pressure (ICD-10-PCS; principal; 2021-01-29)
DX: A41.9 Sepsis, unspecified organism (principal); J96.01 Acute respiratory failure with hypoxia; J69.0 Pneumonitis due to inhalation of food and vomit; B37.1 Pulmonary candidiasis; C93.11 Chronic myelomonocytic leukemia, in remission; L03.115 Cellulitis of right lower limb; L02.415 Cutaneous abscess of right lower limb; Z51.5 Encounter for palliative care; Z66 Do not resuscitate; R65.20 Severe sepsis without septic shock; K21.9 Gastro-esophageal reflux disease without esophagitis; L89.101 Pressure ulcer of unspecified part of back, stage 1; Z20.822 Contact with and (suspected) exposure to COVID-19; L89.610 Pressure ulcer of right heel, unstageable; D69.6 Thrombocytopenia, unspecified; Z85.51 Personal history of malignant neoplasm of bladder; Z90.79 Acquired absence of other genital organ(s); Z87.891 Personal history of nicotine dependence; Z98.42 Cataract extraction status, left eye; Z98.41 Cataract extraction status, right eye; Z88.8 Allergy status to other drugs, medicaments and biological substances; Z79.83 Long term (current) use of bisphosphonates; Z79.899 Other long term (current) drug therapy; Z79.52 Long term (current) use of systemic steroids
CPT/HCPCS: 0202U; 0241U; 31720; 36415; 71045; 71260; 73700; 74230; 80048; 80053; 80202; 83605; 83735; 83880; 84100; 84145; 84484; 84550; 85025; 85027; 85651; 86140; 87040; 87070; 87075; 87076; 87077; 87185; 87186; 87205; 92610; 92611; 93005; 93010; 93922; 94640; 94660; 94760; 94762; 96361; 96374-59; 96375-59; 99285-25; A9270; C1751; J0456; J0696; J1650; J1940; J2060; J2405; J2543; J2930; J3370; J7030; J7050; Q9967